=== PATIENT | female | born 1980 | race Caucasian/White ===

== ENCOUNTER 2024-03-20 18:52 | Emergency (ER) | payer OTHER ==
[~2024-03-20] VITALS: Ht 162.6 cm; Wt 105.5 kg
[2024-03-20 18:57] VITALS: TEMP 98.2
[2024-03-20] MEDS ORDERED: Ketorolac 15 MG/ML VIAL IM ONE (19:15)
[2024-03-20] MEDS ORDERED: FLEXERIL 1010 MG/TAB PO (20:10)
[2024-03-20] MEDS ORDERED: oxyCODONE 5 MG TAB PO ONE (20:15)
[2024-03-20 20:27] VITALS: BP 136/81; PULSE 83
== END 2024-03-20 20:27 | disposition home or self-care (01) ==
LOC: COL.ER 18:52 → EDBD 18:54 → COL.ER 18:54
DX: M53.3 Sacrococcygeal disorders, not elsewhere classified (principal)
CPT/HCPCS: J1885; J3360